=== PATIENT | male | born 1985 | race Asian ===

== ENCOUNTER 2020-10-13 23:53 | Emergency (ER) | payer SELFPAY ==
[~2020-10-13] VITALS: Ht 165.1 cm; Wt 95.7 kg
[2020-10-14 00:03] VITALS: Ht 165.1 cm; Wt 95.7 kg
[2020-10-14 01:52] VITALS: BP 124/74
== END 2020-10-14 01:52 | disposition home or self-care (01) ==
LOC: ED 23:53
DX: R05 Cough (principal); R09.89 Other specified symptoms and signs involving the circulatory and respiratory systems; R50.9 Fever, unspecified; M79.10 Myalgia, unspecified site; R06.02 Shortness of breath; I10 Essential (primary) hypertension; Z20.828 Contact with and (suspected) exposure to other viral communicable diseases
CPT/HCPCS: U0003